=== PATIENT | female | born 1945 | race African-American/Black ===

== ENCOUNTER 2020-10-25 08:31 | Day surgery (SDC) | payer BC ==
[2020-10-19 11:10] VITALS: BMI 24.0
[~2020-10-25 08:31] MED LIST: LACTATED RINGERS SOLUTION 1,000 ML IV SCH; ONDANSETRON 4 MG/2 ML VIAL IVPUSH PRN
[2020-10-25] MEDS: CIPROFLOXACIN 0.3% EYE DROPS 5 ML BOTTLE ONE ×3 (09:00→09:10)
[2020-10-25] MEDS: CYCLOPENTOLATE 2% OPHTH SOLN 2 ML BOTTLE ONE ×3 (09:00→09:10)
[2020-10-25] MEDS: TROPICAMIDE 1% OPHTH SOLN 15 ML BOTTLE ONE ×3 (09:00→09:10)
[2020-10-25] MEDS: PHENYLEPHRINE 2.5% OPHTH SOLN 15 ML BOTTLE ONE ×3 (09:00→09:10)
[2020-10-25] MEDS ORDERED: MIDAZOLAM HCL 2 MG/2 ML SINGLE DOSE VIAL ONE ×2 (10:02→10:34)
[2020-10-25 11:07] VITALS: TEMP 98.2
[2020-10-25 12:00] VITALS: BP 110/70; PULSE 72
== END 2020-10-25 12:02 | disposition home or self-care (01) ==
LOC: FASU 08:31
PROVIDERS: ATTEND Ophthalmology
PROC: 08RJ3JZ Replacement of Right Lens with Synthetic Substitute, Percutaneous Approach (ICD-10-PCS; principal; 2020-10-25 10:39)
DX: H26.8 Other specified cataract (principal)

== ENCOUNTER → 2020-11-22 | Day surgery (SDC) | payer BC ==
[2020-11-21 09:53] VITALS: BMI 24.0
[~2020-11-22] MED LIST changes: +BSS (NA/CA/MG/K) BALANCED SALT SOLUTION OPHTH SOLN 15 ML BOTTLE ONE; +CARBACHOL 0.01% INTRA-OCULAR 1.5 ML VIAL ONE; +EPINEPHrine/PF 1 MG/1 ML (1:1,000) AMPULE ONE; +KETOROLAC TROMETHAMINE 30 MG/1 ML VIAL ONE; -LACTATED RINGERS SOLUTION 1,000 ML IV SCH; +LIDOCAINE 1% P/F 10 MG/ML VIAL ONE; +MIDAZOLAM HCL 2 MG/2 ML SINGLE DOSE VIAL ONE; +NEO/POLYMYX B SULF/DEXAMETH OPHTHALMIC 5ML BOTTLE ONE; -ONDANSETRON 4 MG/2 ML VIAL IVPUSH PRN; +TETRACAINE 0.5% OPHTH SOLN 2 ML BOTTLE ONE
[2020-11-22 07:20] VITALS: BP 110/61; PULSE 65; TEMP 97.7
[2020-11-22] MEDS: CIPROFLOXACIN 0.3% EYE DROPS 5 ML BOTTLE ONE ×3 (07:20→07:30)
[2020-11-22] MEDS: CYCLOPENTOLATE 2% OPHTH SOLN 2 ML BOTTLE ONE ×3 (07:20→07:30)
[2020-11-22] MEDS: PHENYLEPHRINE 2.5% OPHTH SOLN 15 ML BOTTLE ONE ×3 (07:20→07:30)
[2020-11-22] MEDS: TROPICAMIDE 1% OPHTH SOLN 15 ML BOTTLE ONE ×3 (07:20→07:30)
== END | disposition home or self-care (01) ==
LOC: FASU 06:17
PROVIDERS: ATTEND Ophthalmology
PROC: 08RK3JZ Replacement of Left Lens with Synthetic Substitute, Percutaneous Approach (ICD-10-PCS; principal; 2020-11-22 08:18)
DX: H26.8 Other specified cataract (principal)